=== PATIENT | female | born 1995 | race American Indian/Alaskan Native ===

== ENCOUNTER 2020-11-02 03:41 | Inpatient (IN) | payer SELFPAY ==
[2020-11-02] MEDS ORDERED: LACTATED RINGERS 2,000 ML ONE (04:29)
[2020-11-02 04:40] LABS: Basophils # (Auto) 0.1 K/mm3 (0.0-0.1); Basophils % (Auto) 1.1 % (0.0-1.8); Eosinophils # (Auto) 0.4 K/mm3 (0.0-0.4); Eosinophils % (Auto) 3.5 % (0.0-4.3); Hematocrit 30.4 % (30.3-42.9); Hemoglobin 9.7 gm/dl (10.1-14.3); Lymphocytes # (Auto) 3.8 K/mm3 (1.2-5.4); Lymphocytes % (Auto) 36.8 % (13.4-35.0); Mean Corpuscular HGB Conc 32 % (30-34); Mean Corpuscular Volume 75 fl (79-97); Monocytes # (Auto) 0.6 K/mm3 (0.0-0.8); Monocytes % (Auto) 6.1 % (0.0-7.3); Platelet Count 291 K/mm3 (140-440); Red Blood Count 4.05 M/mm3 (3.65-5.03); Red Cell Distribution Width 17.1 % (13.2-15.2)
[2020-11-02] MEDS ORDERED: ONDANSETRON 4 MG/2 ML INJ ONE (04:49)
[2020-11-02] MEDS ORDERED: BUPIVACAINE/PF (0.5%) 5 MG/1 ML 30 ML VIAL INFILTRATI ONE (04:49)
[2020-11-02] MEDS ORDERED: KETOROLAC 30 MG/1 ML INJ ONE (04:49)
[2020-11-02] MEDS ORDERED: OXYTOCIN DRIP 30,000 MILLIUNITS/500 ML BAG IV ONE (04:56)
[2020-11-02] MEDS ORDERED: METOCLOPRAMIDE 10 MG/2 ML INJ ONE (04:57)
[2020-11-02] MEDS ORDERED: BICITRA ORAL LIQD 30ML ONE (04:57)
[2020-11-02] MEDS ORDERED: FAMOTIDINE 20 MG/2 ML INJ IV ONE ×2 (04:57→05:25)
--- NOTE | 2020-11-02 04:58 | Anesthesia Day of Surgery ---
Anesthesia Day of Surgery - Day of Surgery Patient Examined: Yes Patient H&P Reviewed: Yes Patient is NPO: Yes
--- NOTE | 2020-11-02 04:58 | Anesthesia Consultation ---
Anesthesia Consult and Med Hx Date of service: 11/02/20 - Airway Anesthetic Teeth Evaluation: Good ROM Head & Neck: Adequate Mental/Hyoid Distance: Adequate Mallampati Class: Class II Intubation Access Assessment: Probably Good - Pulmonary Exam CTA: Yes - Cardiac Exam Cardiac Exam: RRR - Pre-Operative Health Status ASA Pre-Surgery Classification: ASA2, Emergency Proposed Anesthetic Plan: Spinal - Pulmonary Hx Smoking: Yes Hx Asthma: No - Cardiovascular System Hx Hypertension: No - Central Nervous System Hx Seizures: No Hx Psychiatric Problems: No - Endocrine Hx Renal Disease: No Hx Hypothyroidism: No Hx Hyperthyroidism: No - Hematic Hx Anemia: Yes Hx Sickle Cell Disease: No - Other Systems Hx Alcohol Use: No
[2020-11-02] MEDS ORDERED: BICITRA ORAL LIQD 30ML PO ONE (05:25)
[2020-11-02] MEDS ORDERED: METOCLOPRAMIDE 10 MG/2 ML INJ IV ONE (05:25)
[2020-11-02] MEDS ORDERED: SODIUM CHLORIDE 0.9% 500 ML 500 ML IV ONE (05:27)
[2020-11-02] MEDS ORDERED: LACTATED RINGERS 1,000 ML IV SCH ×2 (05:30)
[2020-11-02] MEDS ORDERED: OXYTOCIN DRIP 30 UNITS/500 ML BAG IV SCH (06:00)
[2020-11-02] MEDS ORDERED: WITCH HAZEL/ GLYCERIN PAD TP PRN (06:30)
[2020-11-02] MEDS ORDERED: NALOXONE 0.4 MG/1 ML INJ IV PRN (06:30)
[2020-11-02] MEDS ORDERED: MAGNESIUM HYDROXIDE (MOM) ORAL LIQD UDC PO PRN (06:30)
[2020-11-02] MEDS ORDERED: SIMETHICONE 80 MG CHEW TAB PO PRN (06:30)
[2020-11-02] MEDS ORDERED: SENNOSIDES 8.6 MG TAB PO PRN (06:30)
[2020-11-02] MEDS ORDERED: MORPHINE 4 MG/1 ML INJ IV PRN (06:30)
[2020-11-02] MEDS ORDERED: LANOLIN/ZINC/DIMETHICONE (LANSINOH) 7 GM TP PRN (06:30)
[2020-11-02] MEDS ORDERED: IBUPROFEN 600 MG TAB PO PRN (06:30)
[2020-11-02] MEDS ORDERED: MORPHINE 2 MG/1 ML INJ IV PRN (06:30)
[2020-11-02] MEDS ORDERED: ONDANSETRON 4 MG/2 ML INJ IV PRN (06:30)
--- NOTE | 2020-11-02 06:38 | History and Physical Report ---
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[place], no records Past History Past Surgical History: section - Obstetrical History Expected Date of Delivery: 11/12/20 Actual Gestation: 38 Week(s) 4 Day(s) : 3 Para: 2 Medications and Allergies Allergies Allergy/AdvReac Type Severity Reaction Status Date / Time iodine Allergy Unknown Verified 11/02/20 03:55 shellfish derived Allergy Unknown Verified 11/02/20 05:24 Home Medications Medication Instructions Recorded Confirmed Last Taken Type Ferrous Sulfate [Feosol 325 MG tab] 1 tab PO DAILY 11/02/20 11/02/20 1 Month Ago History ~10/03/20 Ibuprofen [Motrin] 600 mg PO Q8H PRN #60 tablet 11/02/20 Unknown Rx Vit-Fe Fumar-FA [ 1 tab PO DAILY 11/02/20 11/02/20 1 Month Ago History Vitamin] ~10/03/20 oxyCODONE /ACETAMINOPHEN [Percocet 1 tab PO Q6HR PRN #20 tablet 11/02/20 Unknown Rx 5/325] Active Meds: Active Medications Lactated Ringer's (Lactated Ringers) 1,000 mls @ 999 mls/hr IV BOLUS CLAUDY Stop: 11/03/20 06:31 Lactated Ringer's (Lactated Ringers) 1,000 mls @ 125 mls/hr IV DIRECT CLAUDY Oxytocin/Sodium Chloride (Pitocin/Ns 30 Unit/500ml) 30 units in 500 mls @ 165 mls/hr IV TITR CLAUDY; Protocol Review of Systems All systems: negative (vaginal bleeding,contractions) - Vital Signs Vital signs: Vital Signs Temp Resp 97.9 F 18 11/02/20 04:03 11/02/20 04:03 Temp Pulse Resp BP Pulse Ox 97.9 F 74 18 101/63 84 11/02/20 05:41 11/02/20 04:54 11/02/20 04:03 11/02/20 05:41 11/02/20 04:54 - Physical Exam Breasts: Positive: deferred Cardiovascular: Regular rate Abdomen: Positive: other (fundus rigid) Extremities: Positive: normal Deep Tendon Reflex Grade: Normal +2 - Obstetrical FHR: category 3 Results Result Diagrams: 11/02/20 Unknown Abnormal lab results 11/02/20 11/02/20 Range/Units 04:20 Unknown Hgb 9.7 L (10.1-14.3) gm/dl MCV 75 L (79-97) fl MCH 24 L (28-32) pg RDW 17.1 H (13.2-15.2) % Lymph % (Auto) 36.8 H (13.4-35.0) % Crossmatch See Detail All other labs normal. Assessment and Plan emergent section informed consent obtained Josué Cuba MD
--- NOTE | 2020-11-02 06:42 | Progress Note ---
Regional Anesthesia Block - Regional Anesthesia Block Start Time: 06:35 Stop Time: 06:40 Performed By:: HATTIE HAN Procedure: U/S guided bilateral tap block performed for post-operative pain requested by Dr. Cuba. H&P & labs reviewed. Procedure explained, questions answered, consent obtained. Patient in the supine position with ekg, blood pressure cuff and pulse ox on and working in PACU. Timeout performed immediately before start of procedure. Probe placed in the mid-axillary line and the external oblique, internal oblique, and transverse abdominus muscles identified. Skin was cleansed with 0.5% Chlorahexadine and allowed to dry. A 4" 20 G Sky echogenic needle was advanced in plane until the tip was in the fascial plane between the internal oblique and the transverse abdominus. After negative aspiration 35 ml/side of [30 ml 0.5% Bupivacaine], [50 mcg dexmedetomidine], and [40 ml sterile saline] was injected in 5 ml increments with negative aspiration in between. Patient tolerated procedure well.
--- NOTE | 2020-11-02 06:42 | Progress Note ---
Spinal Anesthesia Block - Spinal Anesthesia Block Start Time: 05:04 Stop Time: 05:06 Performed by:: HATTIE HAN Procedure: Sitting, sterile betadine prep/drape, 1% lidocaine skin local, 25G spinal needle + introduced at L3-4, + CSF, - Heme, [1.9 ml 0.5% bupivacaine + 10 mcg dexmedetomidine] injected, drape removed, patient positioned supine with left uterine displacement, and spinal level verified to be adequate prior to surgery.
--- NOTE | 2020-11-02 07:20 | Procedure Note ---
OB Delivery Note - Delivery Date of Delivery: 11/02/20 Surgeon: LAMONTE AMADOR (]) Estimated blood loss: other (600ml) - Section Preop diagnosis: nonreassuring FHR tracing, other (vaginal bleeding, contractions,NRFHT suspected placental abruption) Postop diagnosis: same (same,delivered) section procedure: repeat low transverse Disposition: PACU Complications: none Narrative: Preop diagnosis: IUP at 38.5 weeks, vaginal bleeding with contractions, previous section x2, suspected placental abruption Postop diagnosis: Same, delivered Procedure: Emergent Repeat low transverse section via vertical skin incision Surgeon: Dr. Lamonte Amador Anesthesia spinal Complications none EBL 600ml IV fluids 1000mL Urine output 50mL, clear Drains Rivera to gravity Findings: Viable male with weight 2756gms and 7/9, normal uterus tubes and ovaries bilaterally Procedure: Patient was consented in OB triage, taken emergently to the operating room where she received excellent spinal anesthesia. She was then placed in the dorsal supine position with a leftward tilt. The abdomen was prepped and draped in a sterile fashion, and a timeout was verified. Adequate anesthesia was confirmed prior to the skin incision. A vertical skin incision was made with a scalpel taken down to the underlying structures and the fascia was incised in the midline. The incision was extended superiorly and interiorly with curved Irene scissors. The abdomen was entered bluntly in the midline carried down inferiorly with good visualization of the bladder. Bladder blade was inserted, the uterine incision was made sharply with a scalpel and extended laterally bluntly. Immediately upon uterine entry a large blood clot was noted confirming suspected placenta abruption, large meconium stained fluid noted at delivery. The baby's head was delivered atraumatically with no nuchal cord and and the remainder of the delivery was atraumatic, The cord was clamped and cut and baby handed to waiting NICU team. A segment of umbilical cord taken for cord gas sampling. Then cord blood was obtained. An intact placenta with three- vessel cord delivered manually. The uterus was then cleared of all clots and debris and the uterus exteriorized. The uterine incision was closed with 2 layers of 0 chromic with excellent hemostasis. The abdomen was then irrigated with warm normal saline and the uterus placed back into the abdomen atraumatically. A second look at the uterine incision and ensured hemostasis. The peritoneum was closed with 3-0 Vicryl, the rectus muscles approximated with 3-0 Vicryl, and the fascia closed with 0 Vicryl in the usual fashion. The subc uticular structures were closed with interrupted sutures of 3-0 Vicryl and the skin closed with tyrell. A pressure dressing was applied. All sponge needle and instrument counts were correct x2. There were no complications. Mom and baby to PACU in stable condition. EBL 600 mL Josué Amador MD - A at 1 minute: 7 at 5 minutes: 9 Gender: Male (2756gms)
[2020-11-02] MEDS: KETOROLAC 30 MG/1 ML INJ IV PRN ×2 (15:18→20:53)
[2020-11-02 20:14] LABS: Hematocrit 25.3 % (30.3-42.9)
[2020-11-02] MEDS: HYDROcodone/ACETAMINOPHEN 5-325 MG TAB PO PRN (23:22)
[2020-11-03] MEDS: HYDROcodone/ACETAMINOPHEN 5-325 MG TAB PO PRN ×3 (07:43→21:43)
[2020-11-03] MEDS: FERROUS SULFATE 325 MG TAB PO SCH ×2 (09:23→21:42)
--- NOTE | 2020-11-03 10:57 | Post Anesthesia Evaluation ---
- Post Anesthesia Evaluation Patient Participated: Yes Airway Patent: Yes Stable Respiratory Function: Yes Nausea/Vomiting: No Temp > 96.8F: Yes Pain Manageable: Yes Adequeate Hydration: Yes Anesthesia Complications: No Block Receding Appropriately: Yes Patient on Ventilator: No
--- NOTE | 2020-11-03 11:47 | Progress Note ---
Assessment and Plan A: S/P repeat emergency LTCS with placenta abruption Anemia P: Continue monitoring Ferrous Sulfate prescribed Encourage ambulation Pain med prn D/C home when stable - Patient Problems (1) delivery delivered Current Visit: Yes Status: Acute (2) Anemia Current Visit: Yes Status: Acute Subjective - Subjective Date of service: 11/03/20 Principal diagnosis: s/p repeat LTCS with placenta abruption Patient reports: appetite normal, voiding normally, pain well controlled, ambulating normally [place]: doing well, nursing well Objective - Vital Signs Latest vital signs: Vital Signs Temp Pulse Resp BP BP Pulse Ox 11/03/20 07:54 97.4 F L 67 20 114/63 11/03/20 05:04 97.8 F 65 20 106/62 98 11/03/20 04:13 18 11/03/20 00:33 98.0 F 62 18 101/42 96 11/02/20 23:22 18 11/02/20 20:53 18 11/02/20 20:43 97.9 F 65 20 109/64 100 11/02/20 18:45 16 11/02/20 16:25 97.8 F 57 L 16 111/51 11/02/20 15:18 16 11/02/20 11:45 98.0 F 59 L 15 114/58 Intake and Output 11/02/20 11/03/20 11/03/20 22:59 06:59 14:59 Intake Total 1100 360 Output Total 1301 Balance -201 360 Intake: Oral 860 120 Intake, Free Water 240 240 Output: Urine 1301 Indwelling Catheter 700 Void 601 Other: Total, Intake Amount 200 120 Total, Output Amount 300 # Voids Void 1 - Exam Breasts: Present: normal Abdomen: Present: normal appearance, soft, normal bowel sounds Vulva: both: normal Uterus: Present: normal, firm, fundal height below umbilicus Extremities: Present: normal Incision: Present: dry, intact, dressed - Labs Labs: Abnormal lab results 11/02/20 Range/Units 19:34 Hgb 8.0 L (10.1-14.3) gm/dl Hct 25.3 L (30.3-42.9) %
[2020-11-03] MEDS: IBUPROFEN 800 MG TAB PO PRN (18:38)
[2020-11-04] MEDS: IBUPROFEN 800 MG TAB PO PRN ×2 (05:29→13:38)
[2020-11-04] MEDS: FERROUS SULFATE 325 MG TAB PO SCH ×2 (10:01→22:07)
--- NOTE | 2020-11-04 10:52 | Discharge Summary ---
Providers - Providers Date of Admission: 11/02/20 04:39 Date of discharge: 11/05/20 Attending physician: LAMONTE AMADOR MD Primary care physician: OFELIA MACHADO MD Hospitalization Reason for admission: section Delivery: Procedure: repeat low transverse Episiotomy: none Laceration: none Incision: dry, intact (tyrell intact, no drainage of bleeding noted, abdominal binder in place) Other procedures: none complications: none Discharge diagnosis: IUP at term delivered baby: male Hospital course: See admission H & P; operative summary and PP progress notes Condition at discharge: Stable Disposition: DC-01 TO HOME OR SELFCARE - Discharge Diagnoses (1) delivery delivered Status: Acute (2) Anemia Status: Acute Qualifiers: Anemia type: iron deficiency Comment: Asymtomatic Plan - Discharge Medications Prescriptions: Ibuprofen [Motrin] 600 mg PO Q8H PRN #60 tablet PRN Reason: Pain oxyCODONE /ACETAMINOPHEN [Percocet 5/325] 1 tab PO Q6HR PRN #20 tablet PRN Reason: Pain - Provider Discharge Summary Activity: routine, no sex for 6 weeks, no heavy lifting 4 weeks, no strenuous exercise Diet: other (Iron rich diet) Instructions: routine Additional instructions: [] Smoking cessation referral if applicable(refer to patient education folder for contact #) [] Refer to [employer] Booklet Call your doctor immediately for: * Fever > 100.5 * Heavy vaginal bleeding ( >1 pad per hour) * Severe persistent headache * Shortness of breath * Reddened, hot, painful area to leg or breast * Drainage or odor from incision. * Keep incision clean and dry at all times and follow doctor's instructions regarding bathing/showering * Follow up at [facility] in 7 days for staple removal - Follow up plan Follow up: PRIMARY CARE, [Primary Care Provider] - 7 Days
[2020-11-04] MEDS: HYDROcodone/ACETAMINOPHEN 5-325 MG TAB PO PRN (23:55)
[2020-11-05] MEDS: HYDROcodone/ACETAMINOPHEN 5-325 MG TAB PO PRN (05:47)
[2020-11-05 08:39] VITALS: BP 125/66
[2020-11-05] MEDS: FERROUS SULFATE 325 MG TAB PO SCH (10:05)
[2020-11-05] MEDS: IBUPROFEN 800 MG TAB PO PRN (10:05)
== END 2020-11-05 12:30 | disposition home or self-care (01) | DRG 786 ==
LOC: TRG 03:41 → APU 03:56 → UNDOADMIN 04:39 → TRG 04:39 → APU 05:18 → UNDOADMIN 05:18 → OB 08:48
PROVIDERS: ADMIT Obstetrics & Gynecology; ATTEND Obstetrics & Gynecology
PROC: 10D00Z1 Extraction of Products of Conception, Low, Open Approach (ICD-10-PCS; principal; 2020-11-02)
PROC: 4A033R1 Measurement of Arterial Saturation, Peripheral, Percutaneous Approach (ICD-10-PCS; 2020-11-02)
DX: O76 Abnormality in fetal heart rate and rhythm complicating labor and delivery (principal); O45.93 Premature separation of placenta, unspecified, third trimester; Z3A.38 38 weeks gestation of pregnancy; Z37.0 Single live birth; Z20.828 Contact with and (suspected) exposure to other viral communicable diseases; Z88.3 Allergy status to other anti-infective agents; Z91.013 Allergy to seafood; O34.211 Maternal care for low transverse scar from previous cesarean delivery; O90.81 Anemia of the puerperium; D64.9 Anemia, unspecified
CPT/HCPCS: 36415; 59025; 82805; 85014; 85018; 85025; 86592; 86706; 86762; 86850; 86900; 86901; 86920; 87806; 88307; 96360; 96374; 96375; G0378; J1885; J2270; J2405; J3490; U0003